=== PATIENT | female | born 1945 | race Caucasian/White ===

== ENCOUNTER 2018-03-06 18:36 | Inpatient (IN) | payer MEDICARE ==
[2018-03-06 19:02] LABS: Hemoglobin 17.7 g/dL (12.0-16.0); Mean Corpuscular HGB CONC 32.9 g/dL (32.0-36.0); Mean Corpuscular Hemoglobin 31.7 pg (27.0-31.0); Mean Corpuscular Volume 96.4 fl (81.0-99.0); Platelet Count 456 thou/uL (130-400); RBC Distribution Width 13.1 % (11.5-14.5); Red Blood Cell (RBC) Count 5.58 mill/uL (4.20-5.40); White Blood Cell (WBC) Count 15.6 thou/uL (4.8-10.8)
[2018-03-06 19:03] LABS: pH, Arterial 7.26 (7.35-7.45)
[2018-03-06 19:04] LABS: Actual Bicarbonate (HCO3a) 28.1 mEq/L (22-26); Base Excess (BEa) -0.8 mEq/L (0 (+/-) 2.5); CO2 Tension 63.9 mmHg (35.0-45.0); Hematocrit-ABG 59.8 % (36.0-47.0); Hemoglobin (Hb) 17.1 g/dL (12.0-16.0); O2 Tension (PaO2) 83.8 mmHg (80.0-100.0)
[2018-03-06 19:05] LABS: ALV-art Gradient 121.525 (0-20); Analyzer IN Cardio ER; Calcium, Ionized 1.2 mmol/L (1.12-1.30); Puncture Site RRA
[2018-03-06] MEDS ORDERED: Magnesium Sulfate 2 GM/100 ML BAG ONE (19:11)
[2018-03-06] MEDS ORDERED: Azithromycin 500 MG VIAL ONE (19:21)
[2018-03-06 19:22] LABS: CKMB 1.9 ng/mL (0-6.6); Troponin I Less than 0.010 ng/mL (< 0.028)
[2018-03-06 19:24] LABS: Band 9 % (5-11); Eosinophils 1 % (0-10); Lymphocytes 10 % (21-51); MDiff Complete? YES; Monocytes 13 % (0-10); Neutrophil 66 % (42-75); PLT Morphology Comment Appears Increased; Polychromasia SLIGHT = 2-3 cells (100X) (0-2/hpf); Reactive Lymphocytes 1 % (0-10)
[2018-03-06 19:28] LABS: Vacuoles SLIGHT
[2018-03-06 19:44] LABS: ALT (SGPT) 12 U/L (8-55); AST (SGOT) 20 U/L (5-34); Albumin 3.7 g/dL (3.4-4.8); Alkaline Phosphatase 156 U/L (40-150); Anion Gap 18 mmol/L (10-20); BUN (Urea Nitrogen) 10 mg/dL (9.8-20.1); Bilirubin, Total 0.8 mg/dL (0.2-1.2); Calc. Creatinine Clearance 0 mL/min (70-130); Calcium 9.3 mg/dL (7.8-10.44); Carbon Dioxide 25 mmol/L (23-31); Chloride 94 mmol/L (98-107); Estimated GFR-MDRD 87; Glucose 154 mg/dL (83-110); Potassium 3.9 mmol/L (3.5-5.1); Protein, Total 7.7 g/dL (6.0-8.3); Sodium 133 mmol/L (136-145)
--- NOTE | 2018-03-06 19:49 | RAD ---
PORTABLE AP CHEST X-RAY 03/06/18 HISTORY: Cough and worsening shortness of breath. COMPARISON: 02/02/17. FINDINGS: The cardiac silhouette and pulmonary vasculature are within normal limits. The lungs are hyperexpande d. There is an irregular nodular parenchymal density seen at the left lung base not seen on prior bijan dy. This could represent focal area of pneumonitis, but followup is recommended to ensure resolution. There is also suggestion of mild increased interstitial densities in the retrocardiac region of the left lung base not see non prior study. This could present focal area of pneumonitis, but followup is recommended to ensure resolution. There is also suggestion of mild increased interstitial densities in the retrocardiac region of the left lung base. Mild chronic lung changes are present. There is ava nting of the right lateral costophrenic angles some of which is related to mild flattening of the hem idiaphragms and probably pleural thickening, but tiny right pleural effusion is a possibility. There is suggestion of postsurgical changes in the right breast with surgical clips again seen in the right axillary region. No other interval change. IMPRESSION: 1. Interstitial and nodular parenchymal densities at the left lung base. These findings may be r elated to pneumonitis. Followup evaluation is recommended given the irregular nodular parenchymal den sity at the left lung base. 2. Chronic lung changes. POS: [facility]
--- NOTE | 2018-03-06 21:44 | HP ---
DATE OF ADMISSION: 03/06/2018 PRIMARY CARE PHYSICIAN: Dr. Leo Porter in [place], [place]. CHIEF COMPLAINT: Shortness of breath. HISTORY OF PRESENT ILLNESS: This is a 72-year-old female who presents to [facility] complaining of increasing shortness of breath over the last 5-7 days prior to admiss ion. Patient took home remedies to include albuterol inhaler as well as Mucinex DM without relief of her symptoms. Patient smokes up to 1-1/2 to 2 packs of cigarettes daily, but denies any home oxygen use or previous admissions for respiratory failure. Patient states the symptoms continued to progre ss with worsening shortness of breath, calling EMS personnel. EMS arrived, noting patient's O2 satur ations in the 50% range and placed on oxygen supplementation with improvement in O2 saturations in th e 80% range. Patient also received DuoNeb therapy x2 and 125 mg of Solu-Medrol intravenously. In th e emergency room, patient underwent general evaluation including chest imaging showing chronic change s with hyperinflation consistent with chronic obstructive pulmonary disease. Patient underwent ABG e valuation showing pH of 7.26 and pCO2 of 64. Patient was placed on BiPAP noninvasive mechanical vent ilation. Patient also received intravenous fluids x1 liter of normal saline as well as azithromycin 500 mg IV x1 dose and Levaquin 750 mg IV x1 dose. Patient also received magnesium sulfate and DuoNeb therapy. Patient also received Rocephin 2 grams IV x1 dose. Patient was referred to the [facility] for further evaluation and admission. PAST MEDICAL HISTORY: 1. Tobacco abuse. 2. Chronic obstructive pulmonary disease. 3. History of right-sided breast cancer. 4. Depression. PAST SURGICAL HISTORY: Reviewed and negative. CURRENT MEDICATIONS: 1. Albuterol metered-dose inhaler. 2. Mucinex DM. We will need to confirm accurate home medication list with family. ALLERGIES: No known drug allergies. FAMILY HISTORY: Positive for hypertension. SOCIAL HISTORY: Patient is , resides in the [place], [place] area. Smokes up to 2 packs of ci garettes daily. No alcohol or illicit drug use. Functional of all activities of daily living. REVIEW OF SYSTEMS: The following complete review of systems was otherwise negative, except as stated per HPI: Constitutional: Weight loss or gain, ability to conduct usual activities. Skin: Rash, i tching. Eyes: Double vision, pain. ENT/Mouth: Nose bleeding, neck stiffness, pain, tenderness. C ardiovascular: Palpitations, dyspnea on exertion, orthopnea. Respiratory: Shortness of breath, whe ezing, cough, hemoptysis, fever, or night sweats. Gastrointestinal: Poor appetite, abdominal pain, heartburn, nausea, vomiting, constipation, or diarrhea. Genitourinary: Urgency, frequency, dysuria, nocturia. Musculoskeletal: Pain, swelling. Neurologic/Psychiatric: Anxiety, depression. Allergy /Immunologic: Skin rash, bleeding tendency. PHYSICAL EXAMINATION: VITAL SIGNS: On admission blood pressure 155/94, pulse 126, respiratory rate 26, temperature 99.0 de grees Fahrenheit, O2 saturation 97% on BiPAP by noninvasive mechanical ventilation. GENERAL APPEARANCE: This is a 72-year-old female on current BiPAP noninvasive mechanical v entilation, alert, responds to questions by nodding her head, in mild respiratory distress. HEENT: Pupils are equal, round, and reactive to light and accommodation. Extraocular muscles are in tact. No scleral icterus, no conjunctival injection. Nares patent. OP is clear. Teeth in fair rep air. No oral lesions noted. NECK: Supple, no cervical adenopathy, no thyromegaly, no carotid bruits, no JVD appreciated. Cervic al spine with full active and passive range of motion. No meningeal signs appreciated. CHEST: Diminished breath sounds in all lung mott. Expiratory wheezes noted. No crackles apprecia meg. CARDIOVASCULAR: S1, S2 with tachycardia diminished and distant heart sounds. ABDOMEN: Flat, soft, nontender, nondistended. Bowel sounds are positive in all four quadrants. The re is no hepatosplenomegaly, no abdominal bruits, no rebound or guarding appreciated. EXTREMITIES: Warm and dry with fair turgor. No clubbing, cyanosis, or asymmetric edema appreciated. Pulses are palpable distally at the dorsalis pedis, posterior tibial, and popliteal arteries bilate rally. Capillary refill less than 2 seconds. NEUROLOGIC: Cranial nerves II-XII are grossly intact. No focal or lateralizing signs appreciated. PERTINENT LABORATORY DATA AND X-RAY FINDINGS: Sodium 133, potassium 3.9, chloride 94, CO2 of 25, BUN 10, creatinine 0.67, estimated GFR of 87, glucose 154. Lactic acid level 2.0, calcium 9.3. Total b ilirubin 0.8, AST 20, ALT of 12, alkaline phosphatase 156, troponin I negative x1. BNP 105, albumin 3.7. CBC showed a white blood cell count of 15.6, hemoglobin 17.7, hematocrit 54, platelet count 456 with normal differential. ABG dated 03/06/2018 at 1852 showed a pH of 7.26, pCO2 of 64, pO2 of 84, bicarbonate 28.1, O2 saturation 96% on 40% FIO2 by BiPAP noninvasive mechanical ventilation. Portabl e chest x-ray dated 03/06/2018 showed interstitial and chronic changes in bilateral lung mott with increased density of the left lung base. EKG dated by my interpretation shows sinus tachycardia with heart rates in the 110s. Attenuated R waves noted in the precordial leads. Left axis deviation not ed. No acute ST-T wave changes appreciated. ASSESSMENT AND PLAN: 1. Acute hypercapnic respiratory failure. Patient will be continued on BiPAP noninvasive mechanical ventilation. We will continue treatment as outlined. 2. Titrate BiPAP noninvasive mechanical ventilation as clinically indicated. Consult Pulmonology Se rvice in the a.m. for evaluation and co-management. 3. Acute chronic obstructive pulmonary disease exacerbation. We will continue BiPAP noninvasive mec hanical ventilation as outlined in #1. Solu-Medrol 40 mg IV q.6 hours. Continue Levaquin 750 mg IV q .24 hours. DuoNeb q.4 hours. Dulera 2 puffs inhaled b.i.d. 4. Dehydration. We will continue intravenous normal saline at 75 mL per hour. Encourage increased free water intake when BiPAP noninvasive mechanical ventilation discontinued. 5. Tobacco abuse. We will offer smoking cessation resources prior to discharge. 6. Hyponatremia. We will continue intravenous normal saline at 75 mL per hour. Repeat sodium level in the a.m. 7. Prophylaxis. Sequential compression devices while in bed. Pepcid 20 mg p.o. b.i.d. 8. Code status is FULL. Surrogate medical decision maker is patient's spouse. Total critical care time is 45 minutes.
[2018-03-06] MEDS ORDERED: Ondansetron ODT 4 MG TAB SL PRN (21:57)
[2018-03-06] MEDS ORDERED: Sodium Chloride 0.9% 1,000 ML IV SCH (21:57)
[2018-03-06] MEDS ORDERED: Acetaminophen 325 MG TAB PO PRN (21:57)
[2018-03-06] MEDS ORDERED: Ondansetron HCl/PF 4 MG/2 ML Vial IVP PRN ×2 (21:57→22:14)
[2018-03-06] MEDS ORDERED: Ondansetron ODT 4 MG TAB PO PRN (22:14)
[2018-03-06] MEDS ORDERED: Benzonatate 100 MG CAP PO PRN (22:14)
[2018-03-06] MEDS ORDERED: hydrALAZINE 20 MG/ML VIAL SLOW IVP PRN (22:14)
[2018-03-06] MEDS ORDERED: Acetaminophen 500 MG TAB PO PRN (22:14)
[2018-03-06] MEDS ORDERED: Diabetic Tussin 200 MG/10 ML UDCUP PO PRN (22:14)
[2018-03-06] MEDS ORDERED: cloNIDine 0.1 MG TAB PO PRN (22:14)
[2018-03-06] MEDS ORDERED: Famotidine 20 MG TAB PO SCH (22:45)
[2018-03-06 23:15] VITALS: BMI 16.8
[2018-03-07] MEDS: Sodium Chloride 0.9% 1,000 ML IV SCH ×3 (00:40→23:34)
[2018-03-07 05:30] LABS: ALT (SGPT) 10 U/L (8-55); AST (SGOT) 12 U/L (5-34); Albumin 3.2 g/dL (3.4-4.8); Alkaline Phosphatase 120 U/L (40-150); Anion Gap 12 mmol/L (10-20); BUN (Urea Nitrogen) 8 mg/dL (9.8-20.1); Bilirubin, Total 0.4 mg/dL (0.2-1.2); Calc. Creatinine Clearance 67 mL/min (70-130); Calcium 8.7 mg/dL (7.8-10.44); Carbon Dioxide 29 mmol/L (23-31); Chloride 100 mmol/L (98-107); Estimated GFR-MDRD Greater than 90; Globulin 3.3 g/dL (2.4-3.5); Glucose 150 mg/dL (83-110); Potassium 4.5 mmol/L (3.5-5.1); Protein, Total 6.5 g/dL (6.0-8.3); Sodium 136 mmol/L (136-145)
[2018-03-07 05:38] LABS: Band 19 % (5-11); Hemoglobin 15.6 g/dL (12.0-16.0); Lymphocytes 2 % (21-51); MDiff Complete? YES; Mean Corpuscular HGB CONC 31.9 g/dL (32.0-36.0); Mean Corpuscular Hemoglobin 30.9 pg (27.0-31.0); Mean Corpuscular Volume 96.7 fl (81.0-99.0); Mean Platelet Volume 6.1 fL (7.4-10.4); Monocytes 2 % (0-10); Neutrophil 77 % (42-75); PLT Morphology Comment Appears Increased; Platelet Count 415 thou/uL (130-400); RBC Distribution Width 12.9 % (11.5-14.5); RBC Morphology Normal; Red Blood Cell (RBC) Count 5.04 mill/uL (4.20-5.40); White Blood Cell (WBC) Count 13.8 thou/uL (4.8-10.8)
[2018-03-07] MEDS: Mometasone/Formoterol 120 PUFF INHALER INH SCH ×2 (07:16→18:43)
[2018-03-07] MEDS: Famotidine 20 MG TAB PO SCH ×2 (11:08→21:18)
--- NOTE | 2018-03-07 12:27 | CT ---
CT CHEST WITH CONTRAST: History: Abnormal radiograph. Comparison: 03-06-17 FINDINGS: There is thickened interstitium throughout the lungs without apical basilar gradient. There are multi ple areas of normal bronchiectasis. There is interstitial thickening in the left lung base, greater t brown the right lung base. Peripheral small vertebral nodules are present. Likely component of scarring in the left lung base peripherally. Scattered atelectasis. There is abnormal enhancement and fibrotic appearance of the liver. Small AP window lymph nodes. No significant prevascular hilar adenopathy. No significant pericardial effusion. There is no definite intraparenchymal solid mass. Mild emphysema. IMPRESSION: 1. No evidence of suspicious lung mass. 2. Interstitial thickening throughout the lungs suggesting a component of pulmonary edema. 3. Scattered small centrilobularal pulmonary nodules can seen with bronchiolitis. 4. Likely a component of scarring with surrounding atelectasis in the lung bases. 5. Nonspecific small, likely reactive mediastinal lymph nodes. 6. Heterogeneous appearance of the liver may be sequellae of cirrhosis or hepatic fibrosis. POS: [facility]
--- NOTE | 2018-03-07 14:10 | CON ---
DATE OF CONSULTATION: 03/07/2018 REASON FOR CONSULTATION: COPD exacerbation. 70 minutes time spent on this consult, of that time greater than 50% was spent with the patient and/or on the patient's unit. HISTORY OF PRESENT ILLNESS: This is a 72-year-old female from [place], who was brought in to the hospital with several days of increasing shortness of breath and sputum production. She was briefly placed on BiPAP because of some hypercapnia. At the time of admission, she has been taken off the BiPAP this morning and she wants to go home. She is 1.5-2 pack per day smoker for most of her life. She has been diagnosed with COPD and is being followed by Dr. German flores in [place]. PAST MEDICAL HISTORY: 1. COPD. 2. Right-sided breast cancer, treated with surgery and radiation. 3. Depression. PAST SURGICAL HISTORY: Breast surgery. MEDICATIONS PRIOR TO ADMISSION: Albuterol, Spiriva HandiHaler, Mucinex. ALLERGIES: None. SOCIAL HISTORY: Smoking as outlined above. Does not consume alcohol. Lives at home with her . FAMILY MEDICAL HISTORY: Remarkable for hypertension. REVIEW OF SYSTEMS: Remarkable for profound weight loss over the last 3 months. Otherwise, 12 point review of systems negative. PHYSICAL EXAMINATION: VITAL SIGNS: Temperature 97.5, pulse 80, respirations 20, O2 sat 95%, blood pressure 144/81, height 5 feet 9, weight 114 pounds, BMI 16.9. GENERAL: She looks older than her stated age of 72. HEENT: Pupils react. Sclerae icteric. Oropharynx clear. NECK: Without adenopathy, JVD, or bruits. LUNGS: Diffuse bilateral soft wheezing. CARDIAC: S1, S2 regular without murmur. ABDOMEN: Soft, nontender, nondistended. EXTREMITIES: No clubbing, cyanosis, or edema. NEUROLOGIC: Grossly intact throughout. Chest x-ray shows what appears to be a nodule in the left lower lobe, this could be a nipple shadow. She has hyperinflation and has chronic interstitial changes. LABORATORY DATA: White blood cell count 13.8, hematocrit 48.8, platelet count 415. A pH 7.26, pCO2 63, pO2 of 83. Sodium 136, potassium 4.5, chloride 100, CO2 29, BUN 8, creatinine 0.6, glucose 150. BNP 104. ASSESSMENT: 1. Acute hypercapnic respiratory failure. 2. Chronic obstructive pulmonary disease exacerbation. 3. Question of left lower lobe lung mass. 4. Tobacco abuse. PLAN: 1. CT of the chest with contrast. 2. Can transfer out to the medical floor. 3. Continue steroids, nebulization treatments, oxygen and antibiotics. If she does well, then she could probably go home tomorrow. CHERYLE
[2018-03-07] MEDS ORDERED: ISOVUE-370 76%-LOCM 1 ML ONE (14:22)
--- NOTE | 2018-03-07 15:04 | PDOC.PN ---
- Subjective Encounter Start Date: 03/07/18 Encounter Start Time: 11:00 Subjective: pt up in bed with family at bedside - Objective Resuscitation Status: Resuscitation Status FULL:Full Resuscitation Vital Signs & Weight: Vital Signs (12 hours) Temp Pulse Resp BP Pulse Ox 03/07/18 11:03 98.0 F 86 22 H 147/67 H 97 03/07/18 08:00 97.5 F L 80 18 95 03/07/18 07:45 80 23 H 95 03/07/18 07:22 97.5 F L 80 18 144/81 H 95 03/07/18 03:56 97.2 F L 79 17 115/66 98 Weight Weight 114 lb 3 oz I&O: 03/06/18 03/07/18 03/08/18 06:59 06:59 06:59 Intake Total 457 Output Total 850 Balance -393 Result Diagrams: 03/07/18 04:38 03/07/18 04:38 Phys Exam - Physical Examination MM is dry Neck: no nodes, no JVD, supple, full ROM Respiratory: no wheezing, no rales, no rhonchi, wheezing present, clear to auscultation bilateral Cardiovascular: RRR, no significant murmur, no rub, gallop, irregular Gastrointestinal: soft, non-tender Musculoskeletal: no edema, pulses present, edema present Neurological: non-focal, normal sensation, moves all 4 limbs Dx/Plan - Plan 1) acute hypercapnic resp failure 2) Acute chronic obs pulmonary disease exab 3) dehydration 4) tobacco abuse 5) hyponatremia 6) leukocytosis plan: pt up in bed on 3L of oxygen, pt on steroids iv and abx. ct chest no pneumonia noted. will continue iv abx * . Review of Systems - Review of Systems Eyes: negative: Pain, Vision Change, Conjunctivae Inflammation, Eyelid Inflammation, Redness, Other ENT: negative: Ear Pain, Ear Discharge, Nose Pain, Nose Discharge, Nose Congestion, Mouth Pain, Mouth Swelling, Throat Pain, Throat Swelling, Other Respiratory: negative: Cough, Dry, Shortness of Breath, Hemoptysis, SOB with Excertion, Pleuritic Pain, Sputum, Wheezing Cardiovascular: negative: chest pain, palpitations, orthopnea, paroxysmal nocturnal dyspnea, edema, light headedness, other Gastrointestinal: negative: Nausea, Vomiting, Abdominal Pain, Diarrhea, Constipation, Melena, Hematochezia, Other Genitourinary: negative: Dysuria, Frequency, Incontinence, Hematuria, Retention , Other Musculoskeletal: negative: Neck Pain, Shoulder Pain, Arm Pain, Back Pain, Hand Pain, Leg Pain, Foot Pain, Other - Medications/Allergies Allergies/Adverse Reactions: Allergies Allergy/AdvReac Type Severity Reaction Status Date / Time No Known Allergies Allergy Verified 03/06/18 23:00 Medications: Current Medications Acetaminophen (Tylenol) 1,000 mg PO Q6H PRN PRN Reason: Headache/Fever or Mild Pain Albuterol/Ipratropium (Duoneb) 3 ml NEB [id number] PRN PRN Reason: SOB &/or Wheezing Benzonatate (Tessalon) 200 mg PO Q6H PRN PRN Reason: Cough Clonidine (Catapres) 0.1 mg PO Q4H PRN PRN Reason: Systolic BP > 180 Famotidine (Pepcid) 20 mg PO BID [facility] Last Admin: 03/07/18 11:08 Dose: 20 mg Guaifenesin (Robitussin Sf) 200 mg PO Q4H PRN PRN Reason: Cough Hydralazine HCl (Apresoline) 10 mg SLOW IVP Q4H PRN PRN Reason: Systolic BP > 180 Levofloxacin 750 mg/ Device 150 mls @ 100 mls/hr IVPB Q24HR [facility] Sodium Chloride (Normal Saline 0.9%) 1,000 mls @ 75 mls/hr IV .[id number] [facility] Last Admin: 03/07/18 11:09 Dose: 1,000 mls Methylprednisolone Sodium Succinate (Solu-Medrol) 20 mg IVP Q6HR [facility] Last Admin: 03/07/18 11:15 Dose: 20 mg Mometasone Furoate/Formoterol Fumar (Dulera 200 Mcg/5 Mcg Inhaler) 2 puff INH BID-RT [facility] Ondansetron HCl (Zofran Odt) 4 mg PO Q6H PRN PRN Reason: Nausea/Vomiting Ondansetron HCl (Zofran) 4 mg IVP Q6H PRN PRN Reason: Nausea/Vomiting Sodium Chloride (Flush - Normal Saline) 10 ml IVF Q12HR [facility] Last Admin: 03/07/18 11:08 Dose: 10 ml Sodium Chloride (Flush - Normal Saline) 10 ml IVF PRN PRN PRN Reason: Saline Flush
[2018-03-08 05:51] LABS: Bilirubin Negative (Negative); Blood, Urine Negative (Negative); Clarity CLEAR (Clear); Glucose, Urine (Dipstick) Negative (Negative); Leukocyte Negative (Negative); Nitrite Negative (Negative); Protein, Urine (Dipstick) Negative (Neg-Trace); pH, Urine 6.5 (5.0-9.0)
[2018-03-08] MEDS: Mometasone/Formoterol 120 PUFF INHALER INH SCH ×2 (06:35→21:44)
[2018-03-08] MEDS: Famotidine 20 MG TAB PO SCH ×2 (08:24→20:39)
--- NOTE | 2018-03-08 10:44 | PRG ---
DATE OF SERVICE: 03/08/2018 SUBJECTIVE: Patient is anxious to go home. OBJECTIVE: VITAL SIGNS: Temperature 97.7, pulse 69, respirations 15, O2 sat 92% on 3 liters, blood pressure 180 /91. HEENT: Unremarkable. NECK: Supple. No JVD. CHEST: Clear without wheezing or rhonchi. CARDIAC: S1, S2 regular. ABDOMEN: Soft. EXTREMITIES: No edema. IMAGING: CT scan showed no evidence of lung mass. ASSESSMENT: Chronic obstructive pulmonary disease exacerbation. PLAN: It is okay for me if she goes home. She needs to be on steroid taper over about 2 weeks and f inish about 7 days of antibiotics. I would send her home with a nebulizer with treatments up to 4 ti mes a day as needed. She can go back on Symbicort or Dulera and takes Spiriva. She has been told no t to smoke. She may need O2 at home temporarily. It is okay if she follows up with me in 3-4 weeks and we will do PFTs at that time and she is more stable. She can also choose to follow up with [facility].
--- NOTE | 2018-03-08 13:40 | PDOC.PN ---
- Subjective Encounter Start Date: 03/08/18 Encounter Start Time: 10:35 Subjective: pt up in bed eating, states she feels better - Objective Resuscitation Status: Resuscitation Status FULL:Full Resuscitation Vital Signs & Weight: Vital Signs (12 hours) Temp Pulse Resp BP Pulse Ox 03/08/18 11:23 98.2 F 62 16 176/74 H 98 03/08/18 08:24 97.7 F 69 15 92 L 03/08/18 07:18 97.7 F 69 15 180/91 H 92 L 03/08/18 06:35 74 18 94 L 03/08/18 03:56 97.9 F 72 16 178/84 H 94 L Weight Admit Weight 114 lb Weight 114 lb I&O: 03/07/18 03/08/18 03/09/18 06:59 06:59 06:59 Intake Total 457 1860 Output Total 850 Balance -393 1860 Result Diagrams: 03/07/18 04:38 03/07/18 04:38 Phys Exam - Physical Examination HEENT: PERRLA, moist MMs, sclera anicteric, TM's clear, oral pharynx no lesions , 2+ tonsils Neck: no nodes, no JVD, supple, full ROM Respiratory: wheezing present diminished breath sounds Cardiovascular: RRR, no significant murmur, no rub, gallop, irregular Gastrointestinal: soft, non-tender, no distention, positive bowel sounds Dx/Plan - Plan * 1) acute hypercapnic resp failure 2) Acute chronic obs pulmonary disease exab 3) dehydration 4) tobacco abuse 5) hyponatremia 6) leukocytosis plan: pt transferred to floor feels well today. will change iv steroids to oral. She still has some wheezing. Did educated the importance of smoking cessation. pt states she cannot stop now. will watch pt for one more day and then discharge in am. Review of Systems - Review of Systems Eyes: negative: Pain, Vision Change, Conjunctivae Inflammation, Eyelid Inflammation, Redness, Other ENT: negative: Ear Pain, Ear Discharge, Nose Pain, Nose Discharge, Nose Congestion, Mouth Pain, Mouth Swelling, Throat Pain, Throat Swelling, Other Respiratory: Shortness of Breath Cardiovascular: negative: chest pain, palpitations, orthopnea, paroxysmal nocturnal dyspnea, edema, light headedness, other Gastrointestinal: negative: Nausea, Vomiting, Abdominal Pain, Diarrhea, Constipation, Melena, Hematochezia, Other Genitourinary: negative: Dysuria, Frequency, Incontinence, Hematuria, Retention , Other Musculoskeletal: negative: Neck Pain, Shoulder Pain, Arm Pain, Back Pain, Hand Pain, Leg Pain, Foot Pain, Other - Medications/Allergies Allergies/Adverse Reactions: Allergies Allergy/AdvReac Type Severity Reaction Status Date / Time No Known Allergies Allergy Verified 03/06/18 23:00 Medications: Current Medications Acetaminophen (Tylenol) 1,000 mg PO Q6H PRN PRN Reason: Headache/Fever or Mild Pain Albuterol/Ipratropium (Duoneb) 3 ml NEB [id number] PRN PRN Reason: SOB &/or Wheezing Benzonatate (Tessalon) 200 mg PO Q6H PRN PRN Reason: Cough Clonidine (Catapres) 0.1 mg PO Q4H PRN PRN Reason: Systolic BP > 180 Famotidine (Pepcid) 20 mg PO BID COUNTS INCLUDE 234 BEDS AT [facility] Last Admin: 03/08/18 08:24 Dose: 20 mg Guaifenesin (Robitussin Sf) 200 mg PO Q4H PRN PRN Reason: Cough Hydralazine HCl (Apresoline) 10 mg SLOW IVP Q4H PRN PRN Reason: Systolic BP > 180 Levofloxacin 750 mg/ Device 150 mls @ 100 mls/hr IVPB Q24HR COUNTS INCLUDE 234 BEDS AT THE [facility] Last Admin: 03/07/18 21:17 Dose: 150 mls Sodium Chloride (Normal Saline 0.9%) 1,000 mls @ 75 mls/hr IV .[id number] COUNTS INCLUDE 234 BEDS AT THE [facility] Last Admin: 03/07/18 23:34 Dose: Not Given Mometasone Furoate/Formoterol Fumar (Dulera 200 Mcg/5 Mcg Inhaler) 2 puff INH BID-RT COUNTS INCLUDE 234 BEDS AT THE [facility] Last Admin: 03/08/18 06:35 Dose: 2 puff Ondansetron HCl (Zofran Odt) 4 mg PO Q6H PRN PRN Reason: Nausea/Vomiting Ondansetron HCl (Zofran) 4 mg IVP Q6H PRN PRN Reason: Nausea/Vomiting Prednisone (Prednisone) 40 mg PO BID COUNTS INCLUDE 234 BEDS AT THE [facility] Sodium Chloride (Flush - Normal Saline) 10 ml IVF Q12HR COUNTS INCLUDE 234 BEDS AT THE [facility] Last Admin: 03/08/18 11:59 Dose: 10 ml Sodium Chloride (Flush - Normal Saline) 10 ml IVF PRN PRN PRN Reason: Saline Flush
--- NOTE | 2018-03-08 14:56 | PQF ---
LUIS CHAVEZ LUIS [id number] [place] [id number] CLINICAL DOCUMENTATION IMPROVEMENT CLARIFICATION FORM: ICD-10 Updated PLEASE DO AN ADDENDUM TO THE PROGRESS NOTE WITH ANY DOCUMENTATION UPDATES OR ADDITIONS AND CARRY THROUGH TO DC SUMMARY. THANK YOU. Date: 03-08-18 ATTN: DR. BEATTY Please exercise your independent, professional judgment in responding to the clarification form. Clinical indicators are provided on the bottom of this form for your review Please check appropriate box(s): [ x ] Protein Calorie Malnutrition: [ ] Mild [x ] Moderate [ ] Severe [ ] Other Malnutrition (please specify) __ [ ] Underweight without malnutrition [ ] Cachexia [ ] Other diagnosis [ ] Unable to determine CLINICAL INDICATORS - SIGNS / SYMPTOMS / LABS BMI 16.8 MONICA CONSULT: PROFOUND WT LOSS OVER LAST 3 MONTHS NUTRITION ASSESSMENT: % WEIGHT CHANGE: -13.6% over the past 6-7 months observed clavicular and temporal muscle wasting RISK FACTORS H&P: COPD TREATMENT: NUTRITION ASSESSMENT: MALNUTRITION R/T COPD clavicular and temporal muscle wasting observed, 13.6% wt loss over the past 6- 7 months, <50% energy intake compared to estimated needs over the past >1 month 1) Recommend Regular/liberalized diet. 2) Recommend Ensure Enlive BID to promote weight gain. 3) Consider appetite stimulant. 4) Provide bowel regimen PRN. Moderate Malnutrition (in acute illness) Energy Intake: <75% of estimated energy requirement for > 7 days Weight Loss: 1-2%/1 week; 5%/ 1 month; 7.5%/3 months Other: mild body fat loss; mild muscle mass loss; mild fluid accumulation; Severe Malnutrition (in acute illness) Energy Intake: < 50% of estimated energy requirement for > 5 days Weight Loss: >1-2%/1 week; >5%/1 month; >7.5%/3 months Other: moderate body fat loss; moderate muscle mass loss; moderate- severe fluid accumulation; measurably reduced fishing reel assembler strength Moderate Malnutrition (in chronic illness) Energy Intake: <75% of estimated energy requirement for >1 month Weight Loss: 5%/1 month; 7.5%/3 months; 10%/6 months; 20%/1 year Other: mild body fat loss; mild muscle mass loss; mild fluid accumulation Severe Malnutrition (in chronic illness) Energy Intake: <75% of estimated energy requirement for >1 month Weight Loss: >5%/1 month; >7.5%/3 months; >10%/6 months; >20%/1 year Other: severe body fat loss; severe muscle mass loss; severe fluid accumulation; measurably reduced fishing reel assembler strength THANK YOU, CIERA (This form is maintained as a part of the permanent medical record) 2015 [employer]. All Rights Reserved Ciera Sexton RN, BS [email or web address]
[2018-03-08] MEDS: predniSONE 20 MG TAB PO SCH (17:43)
[2018-03-08] MEDS: Sodium Chloride 0.9% 1,000 ML IV SCH (17:49)
[2018-03-09] MEDS: Mometasone/Formoterol 120 PUFF INHALER INH SCH (06:46)
[2018-03-09] MEDS: predniSONE 20 MG TAB PO SCH (08:37)
[2018-03-09] MEDS: Sodium Chloride 0.9% 1,000 ML IV SCH (08:37)
[2018-03-09] MEDS: Famotidine 20 MG TAB PO SCH (08:37)
--- NOTE | 2018-03-09 09:25 | PRG ---
DATE OF SERVICE: 03/09/2018 She is doing well and has no acute complaints. She wants to go home. PHYSICAL EXAMINATION: VITAL SIGNS: Temperature 98.3, pulse 70, respirations 18, O2 sat 93%, blood pressure 167/86. HEENT: Unremarkable. NECK: No JVD. CHEST: Clear without wheezing. CARDIAC: S1 and S2 regular. ABDOMEN: Soft. EXTREMITIES: No edema. ASSESSMENT: 1. Chronic obstructive pulmonary disease exacerbation. 2. Hypoxemia. PLAN: Again, she is cleared to go home. She has been told to follow up in 2-3 weeks. Her home oxyg en has been ordered by the Hospitalist group.
--- NOTE | 2018-03-09 15:05 | DIS ---
DATE OF ADMISSION: 03/06/2018 DATE OF DISCHARGE: 03/09/2018 DISCHARGE DIAGNOSES: 1. Acute chronic obstructive pulmonary disease exacerbation. 2. Moderate malnutrition. 3. Smoking. 4. Hyponatremia. HOSPITAL COURSE: The patient is a very pleasant 72-year-old female, who currently continues to smoke , who presented to the hospital with complaints of shortness of breath. Patient initially was admitt ed to the step-down unit since she was on BiPAP. The patient underwent a CT chest, which indicated i nterstitial thickening throughout the lung suggesting component of pulmonary edema, scattered small c entrilobular pulmonary nodule. Heterogenous appearance of the liver could be possibly secondary to c irrhosis or hepatic fibrosis. The patient also was seen by Pulmonary. The patient was put on IV christopher roids, which was transitioned to p.o. steroids. The patient continued to improve throughout the hosp ital stay. She was discharged to home with a nebulizer machine since she does not have one. Also, s ome nebulizing solution, antibiotics, and steroid taper. The patient will follow up with Pulmonary a s outpatient. The patient was made aware of the CT findings. Patient was sent home with oxygen. She did require home oxygen. PHYSICAL EXAMINATION: GENERAL: She is awake, alert, oriented x3, does not appear in distress. The patient appears moderat kevin malnourished VITAL SIGNS: 97.7, 91, 18, 93%, 166/86. GENERAL: She is awake, alert, and oriented x3, does not appear in distress. CARDIOVASCULAR: S1 and S2 present. No murmurs, rubs, or gallops. LUNGS: Diminished breath sounds all over. No wheezing noted. ABDOMEN: Soft and nontender. Bowel sounds are present x2. MEDICATIONS: Are as the followin. She is on a steroid taper for about 2 weeks. 2. Pepcid 20 mg b.i.d. 3. DuoNeb q.4 hours p.r.n. 4. Levofloxacin 750 mg for 5 days. 5. Dulera 2 puffs inhalation twice a day. 6. Spiriva 18 mcg daily. 7. Albuterol p.r.n.
[2018-03-09 15:34] VITALS: BP 182/80; TEMP 97.6
== END 2018-03-09 16:30 | disposition home health service (06) | DRG 189 ==
LOC: ERS 18:36 → IMCU/EMU 19:44 → SURG A 03-07 17:53
PROVIDERS: ADMIT Family Medicine; ATTEND Family Medicine
PROC: 5A09357 Assistance with Respiratory Ventilation, Less than 24 Consecutive Hours, Continuous Positive Airway Pressure (ICD-10-PCS; principal; 2018-03-06)
DX: J96.02 Acute respiratory failure with hypercapnia (principal); E44.0 Moderate protein-calorie malnutrition; E86.0 Dehydration; J44.1 Chronic obstructive pulmonary disease with (acute) exacerbation; E87.1 Hypo-osmolality and hyponatremia; Z68.1 Body mass index [BMI] 19.9 or less, adult; F17.210 Nicotine dependence, cigarettes, uncomplicated; F32.9 Major depressive disorder, single episode, unspecified
CPT/HCPCS: 36415; 71045; 71260; 80053; 81003; 82553; 82805; 83605; 83880; 84484; 85007; 85025; 85027; 87040; 93005; 94660; 94760; 96365; 96366; 96367; 96375; 99406; A4216; J0360; J0456; J0696; J1956; J2920; J3475; J7506; J7620

== ENCOUNTER 2023-06-10 08:01 | Outpatient (CLI) | payer MEDICARE | END 2023-06-10 08:02 | disposition home or self-care (01) | LOC: CT 08:01 | DX: C34.92 Malignant neoplasm of unspecified part of left bronchus or lung (principal); R91.8 Other nonspecific abnormal finding of lung field; J84.10 Pulmonary fibrosis, unspecified; I25.10 Atherosclerotic heart disease of native coronary artery without angina pectoris | CPT/HCPCS: 71250; 78815; A9552 ==

== ENCOUNTER 2023-06-10 09:00 | Outpatient (CLI) | payer MEDICARE | END 2023-06-10 09:01 | disposition home or self-care (01) | LOC: CAC 09:00 | DX: C34.32 Malignant neoplasm of lower lobe, left bronchus or lung (principal) | CPT/HCPCS: 71250; 78815; A9552 ==

== ENCOUNTER 2023-08-06 08:46 | Outpatient (CLI) | payer MEDICARE | END 2023-08-06 08:47 | disposition home or self-care (01) | LOC: CT 08:46 | DX: Z51.0 Encounter for antineoplastic radiation therapy (principal); C34.32 Malignant neoplasm of lower lobe, left bronchus or lung; K76.89 Other specified diseases of liver; J44.9 Chronic obstructive pulmonary disease, unspecified; R91.1 Solitary pulmonary nodule; J92.9 Pleural plaque without asbestos; I25.10 Atherosclerotic heart disease of native coronary artery without angina pectoris; Z87.891 Personal history of nicotine dependence; Z85.3 Personal history of malignant neoplasm of breast; Z99.81 Dependence on supplemental oxygen | CPT/HCPCS: 71270; 82565 ==

== ENCOUNTER 2024-12-06 11:55 | Inpatient (IN) | payer MEDICARE ==
[2024-12-06 12:39] VITALS: BMI 16.5
[2024-12-06] MEDS ORDERED: Albuterol 2.5 MG (3 mL) NEB NEB PRN (12:51)
[2024-12-06] MEDS: cefTRIAXone\\ROCEPHIN 1 GM in Sodium Chloride 0.9% 100 ML IVPB SCH (13:40)
[2024-12-06] MEDS: Azithromycin 500 MG in Sodium Chloride 0.9% 250 ML 250 ML IVPB SCH (14:30)
[2024-12-06] MEDS: Ipratropium/Albuterol 3 ML NEB NEB SCH (14:47)
[2024-12-06] MEDS: Acetaminophen 325 MG TAB PO PRN (15:51)
[2024-12-06 16:20] VITALS: BMI 16.5
[2024-12-06] MEDS: methylPREDNISolone Sod Succ 40 MG VIAL IVP SCH (18:10)
[2024-12-06] MEDS: Mometasone 100 MCG/PUFF (1 INHALER) INH SCH (18:17)
[2024-12-06] MEDS: Senokot S 8.6-50 MG TAB PO PRN (20:37)
[2024-12-06] MEDS: Escitalopram Oxalate 10 mg Tablet PO SCH (20:37)
[2024-12-07 05:27] LABS: #Basophils Less than 0.03 10x3/uL (0.0-0.2); #Eosinophils Less than 0.03 10x3/uL (0.0-0.7); %Basophils 0.1 % (0.0-1.0); %Lymphocytes 1.8 % (21.0-51.0); %Monocytes 6.3 % (0.0-10.0); %Neutrophils 91.2 % (42.0-75.0); Hematocrit 31.3 % (36.0-47.0); Hemoglobin 9.2 g/dL (12.0-16.0); Mean Corpuscular HGB CONC 29.4 g/dL (32.0-36.0); Mean Corpuscular Hemoglobin 25.1 pg (27.0-31.0); Mean Corpuscular Volume 85.3 fL (78.0-98.0); Mean Platelet Volume 8.6 fL (7.4-10.4); Platelet Count 403 10x3/uL (130-400); RBC Distribution Width 23.2 % (11.5-14.5); Red Blood Cell (RBC) Count 3.67 mill/uL (4.20-5.40)
[2024-12-07 05:46] LABS: Anion Gap 10 mmol/L (10-20); BUN (Urea Nitrogen) 11 mg/dL (9.8-20.1); Calc. Creatinine Clearance 79 mL/min (70-130); Calcium 8.5 mg/dL (7.8-10.44); Carbon Dioxide 36 mmol/L (23-31); Chloride 98 mmol/L (98-107); Estimated GFR 97; Glucose 135 mg/dL (83-110); Potassium 4.3 mmol/L (3.5-5.1); Sodium 140 mmol/L (136-145)
[2024-12-07] MEDS: Ondansetron ODT 4 MG TAB PO PRN (08:19)
[2024-12-07] MEDS ORDERED: Ipratropium/Albuterol 3 ML NEB NEB PRN (08:39)
[2024-12-07] MEDS: Enoxaparin 40 MG (0.4 mL) SYRINGE SC SCH (08:48)
[2024-12-07] MEDS: Ferrous Sulfate 325 MG TAB PO SCH (08:48)
[2024-12-07] MEDS: Losartan 25 MG TAB PO SCH (08:49)
[2024-12-07] MEDS: Aspirin Chewable 81 MG TAB PO SCH (08:49)
[2024-12-07] MEDS: Polyethylene Glycol 3350 17 GM Packet PO SCH (08:49)
[2024-12-07] MEDS: FLU (Fluad Triv) TS24-25 (65UP)/MF59C/PF 45 MCG/0.5 ML Syringe IM ONE (10:16)
[2024-12-07] MEDS: Famotidine 20 MG TAB PO SCH ×2 (13:11→21:38)
[2024-12-07] MEDS: Guaifenesin DM 100-10/5 ML UDCUP PO PRN (21:38)
[2024-12-08 05:30] LABS: #Basophils Less than 0.03 10x3/uL (0.0-0.2); #Eosinophils Less than 0.03 10x3/uL (0.0-0.7); %Basophils 0.1 % (0.0-1.0); %Lymphocytes 2.3 % (21.0-51.0); %Monocytes 7.4 % (0.0-10.0); %Neutrophils 89.5 % (42.0-75.0); Hematocrit 32.6 % (36.0-47.0); Hemoglobin 9.5 g/dL (12.0-16.0); Mean Corpuscular HGB CONC 29.1 g/dL (32.0-36.0); Mean Corpuscular Hemoglobin 25.1 pg (27.0-31.0); Mean Platelet Volume 8.5 fL (7.4-10.4); Platelet Count 388 10x3/uL (130-400); RBC Distribution Width 23.2 % (11.5-14.5); Red Blood Cell (RBC) Count 3.79 mill/uL (4.20-5.40)
[2024-12-08 05:48] LABS: Anion Gap 10 mmol/L (10-20); BUN (Urea Nitrogen) 13 mg/dL (9.8-20.1); Calc. Creatinine Clearance 69 mL/min (70-130); Calcium 8.6 mg/dL (7.8-10.44); Carbon Dioxide 38 mmol/L (23-31); Chloride 96 mmol/L (98-107); Estimated GFR 94; Glucose 142 mg/dL (83-110); Potassium 4.4 mmol/L (3.5-5.1); Sodium 140 mmol/L (136-145)
[2024-12-08] MEDS: Calcium Carbonate 500 MG ChewTAB PO PRN (14:35)
[2024-12-08] MEDS: Simethicone Chewable 80 MG TAB PO PRN (15:15)
[2024-12-09] MEDS: Bisacodyl 5 MG TAB PO PRN (10:55)
[2024-12-09] MEDS: Ipratropium/Albuterol 3 ML NEB NEB SCH (11:57)
[2024-12-09] MEDS: Senokot 8.6 MG TAB PO SCH (12:14)
[2024-12-09] MEDS: guaiFENesin ER 600 MG TAB PO SCH ×2 (12:14→20:48)
[2024-12-09] MEDS: methylPREDNISolone Sod Succ 40 MG VIAL IVP SCH (14:00)
[2024-12-09] MEDS: Mometasone 100 MCG/Formoterol 5 MCG 120 PUFF INHALER INH SCH (19:25)
[2024-12-11] MEDS: Metoclopramide HCl 10 MG TAB PO SCH (12:28)
[2024-12-12 09:04] VITALS: BP 128/65; TEMP 97.8
== END 2024-12-12 10:53 | disposition home or self-care (01) | DRG 191 ==
LOC: UNDOADMOB 12:10 → OBS 12:10 → INTOOBSV 12:51 → OBSVTOIN 12:51
PROVIDERS: ADMIT Student in an Organized Health Care Education/Training Program; ATTEND Internal Medicine
DX: J44.1 Chronic obstructive pulmonary disease with (acute) exacerbation (principal); J96.11 Chronic respiratory failure with hypoxia; D64.9 Anemia, unspecified; R00.0 Tachycardia, unspecified; Z88.2 Allergy status to sulfonamides; Z98.890 Other specified postprocedural states; F17.210 Nicotine dependence, cigarettes, uncomplicated; Z79.82 Long term (current) use of aspirin; Z79.899 Other long term (current) drug therapy; Z71.6 Tobacco abuse counseling; K59.00 Constipation, unspecified
CPT/HCPCS: 36415; 71045; 74018; 80048; 85025; 93005; 93010; 94640; J0456; J0696; J1650; J2919; J7050; J7620; Q0162

== ENCOUNTER 2025-03-04 11:08 | Inpatient (IN) | payer MEDICARE ==
[~2025-03-04 11:08] MED LIST: Iopamidol-370 76% 500 ML MDV (1 ML CHARGE) ONE
[2025-03-04] MEDS ORDERED: LevoFLOXacin 750 mg/D5W 150 ml Premix Bag ONE (11:50)
[2025-03-04] MEDS ORDERED: methylPREDNISolone Sod Succ/PF 125 MG/2 ML VIAL ONE (11:50)
[2025-03-04] MEDS ORDERED: Albuterol 2.5 MG (0.5 mL) NEB ONE (11:51)
[2025-03-04] MEDS ORDERED: Albuterol 2.5 MG (3 mL) NEB ONE (11:51)
[2025-03-04 12:03] LABS: #Basophils 0.07 10x3/uL (0.0-0.2); %Basophils 0.3 % (0.0-1.0); %Eosinophils 0.2 % (0.0-10.0); %Lymphocytes 4.7 % (21.0-51.0); %Monocytes 8.8 % (0.0-10.0); %Neutrophils 85.5 % (42.0-75.0); Hematocrit 32.5 % (36.0-47.0); Mean Corpuscular HGB CONC 30.8 g/dL (32.0-36.0); Mean Corpuscular Hemoglobin 26.4 pg (27.0-31.0); Mean Corpuscular Volume 85.8 fL (78.0-98.0); Mean Platelet Volume 8.1 fL (7.4-10.4); Platelet Count 408 10x3/uL (130-400); RBC Distribution Width 14.7 % (11.5-14.5); Red Blood Cell (RBC) Count 3.79 mill/uL (4.20-5.40)
[2025-03-04 12:22] LABS: ALT (SGPT) Less than 7 U/L (Less than 34); AST (SGOT) 18 U/L (11-34); Albumin 3.5 g/dL (3.1-4.5); Alkaline Phosphatase 68 U/L (40-110); Anion Gap 15 mmol/L (10-20); BUN (Urea Nitrogen) 13 mg/dL (9.8-20.1); Bilirubin, Total 0.3 mg/dL (0.3-1.2); Calc. Creatinine Clearance 0 mL/min (70-130); Carbon Dioxide 28 mmol/L (23-31); Chloride 99 mmol/L (98-107); Estimated GFR 93; Globulin 3.5 g/dL (2.4-3.5); Glucose 104 mg/dL (83-110); Magnesium 1.6 mg/dL (1.6-2.6); Sodium 138 mmol/L (136-145)
[2025-03-04 12:24] LABS: Troponin I Less than 0.010 ng/mL (< 0.028)
[2025-03-04 12:24] LABS: Bacteria/HPF None Seen HPF (None Seen); Bilirubin Negative (Negative); Blood, Urine Negative (Negative); CAUTI Indications for Culture Dysuria,urgency,freq; Clarity Clear (Clear); Glucose, Urine (Dipstick) Normal (Negative); Ketone, Urine Negative (Negative); Leukocyte Negative Leu/uL (Negative); Nitrite Negative (Negative); Protein, Urine (Dipstick) Negative (Neg-Trace); RBC/HPF 0-3 HPF (0-3); Specific Gravity, Urine 1.008 (1.002-1.036); Squamous Epithelial None Seen HPF (0-3); Urobilinogen Normal mg/dL (Less than 2); WBC/HPF None Seen HPF (0-3)
[2025-03-04 12:30] LABS: Actual Bicarbonate (HCO3v) 31.6 mEq/L (22-28); Base Excess 5.8 mEq/L (-2.0 to +3.0); Calcium, Ionized (venous) 1.02 mmol/L (1.16-1.32); Chloride (VBG) 96 mmol/L (98-106); Hematocrit-VBG 34 % (36.0-47.0); Hemoglobin (Hb) 11.7 g/dL (11.7-16.1); Potassium (VBG) 3.95 mmol/L (3.70-5.30); Sodium 137 mmol/L (133-146); pH (venous) 7.405 (7.32-7.43)
[2025-03-04 12:39] LABS: Urine Culture Reflex No No
[2025-03-04] MEDS ORDERED: Acetaminophen 500 MG TAB ONE (13:54)
[2025-03-04] MEDS ORDERED: Ondansetron PF 4 MG/2 ML Vial ONE (13:55)
[2025-03-04] MEDS ORDERED: Guaifenesin DM 100-10/5 ML UDCUP PO PRN (14:42)
[2025-03-04] MEDS ORDERED: Benzonatate 100 MG CAP PO PRN (14:42)
[2025-03-04] MEDS: Vancomycin 1.25 GM / NS 250 ML VIAL-2-BAG IVPB SCH (15:57)
[2025-03-04] MEDS: methylPREDNISolone Sod Succ 40 MG VIAL IVP SCH (16:10)
[2025-03-04 16:33] VITALS: BMI 17.2
[2025-03-04] MEDS: Ipratropium/Albuterol 3 ML NEB NEB SCH (18:58)
[2025-03-04] MEDS: Famotidine 20 MG TAB PO SCH (21:27)
[2025-03-04] MEDS: Escitalopram Oxalate 10 mg Tablet PO SCH (21:27)
[2025-03-04] MEDS: Saccharomyces boulardii 250 MG CAP PO SCH (21:27)
[2025-03-05] MEDS: Acetaminophen 500 MG TAB PO PRN (02:08)
[2025-03-05 07:07] LABS: #Basophils 0.03 10x3/uL (0.0-0.2); #Eosinophils Less than 0.03 10x3/uL (0.0-0.7); %Basophils 0.1 % (0.0-1.0); %Lymphocytes 3.3 % (21.0-51.0); %Monocytes 2.6 % (0.0-10.0); %Neutrophils 93.4 % (42.0-75.0); Hematocrit 29.5 % (36.0-47.0); Hemoglobin 9.1 g/dL (12.0-16.0); Mean Corpuscular HGB CONC 30.8 g/dL (32.0-36.0); Mean Corpuscular Hemoglobin 26.2 pg (27.0-31.0); Mean Platelet Volume 8.6 fL (7.4-10.4); Platelet Count 390 10x3/uL (130-400); RBC Distribution Width 14.7 % (11.5-14.5); Red Blood Cell (RBC) Count 3.47 mill/uL (4.20-5.40)
[2025-03-05 07:31] LABS: ALT (SGPT) Less than 7 U/L (Less than 34); AST (SGOT) 11 U/L (11-34); Albumin 2.9 g/dL (3.1-4.5); Alkaline Phosphatase 51 U/L (40-110); Anion Gap 12 mmol/L (10-20); BUN (Urea Nitrogen) 12 mg/dL (9.8-20.1); Bilirubin, Total 0.2 mg/dL (0.3-1.2); Calc. Creatinine Clearance 76 mL/min (70-130); Calcium 8.3 mg/dL (7.8-10.44); Carbon Dioxide 29 mmol/L (23-31); Chloride 102 mmol/L (98-107); Estimated GFR 95; Globulin 3.1 g/dL (2.4-3.5); Glucose 146 mg/dL (83-110); Potassium 3.9 mmol/L (3.5-5.1); Sodium 139 mmol/L (136-145)
[2025-03-05] MEDS: Metoprolol Succinate XL 25 MG ER.TAB PO SCH (08:44)
[2025-03-05] MEDS: LevoFLOXacin 750 mg/D5W 750 MG in Premix 1 BAG IVPB SCH (08:44)
[2025-03-05] MEDS ORDERED: Simethicone Chewable 80 MG TAB PO PRN (11:11)
[2025-03-05] MEDS ORDERED: Dicyclomine 20 MG TAB PO PRN (11:11)
[2025-03-05] MEDS: Ondansetron ODT 4 MG TAB PO PRN (12:32)
[2025-03-05] MEDS: Mometasone 100 MCG HFA INHALER (RT USE) INH SCH (18:41)
[2025-03-05] MEDS: Enoxaparin 40 MG (0.4 mL) SYRINGE SC SCH (20:38)
[2025-03-06 07:43] LABS: #Basophils Less than 0.03 10x3/uL (0.0-0.2); #Eosinophils Less than 0.03 10x3/uL (0.0-0.7); %Basophils 0.1 % (0.0-1.0); %Lymphocytes 3.9 % (21.0-51.0); %Monocytes 2.8 % (0.0-10.0); %Neutrophils 92.6 % (42.0-75.0); Hematocrit 32.9 % (36.0-47.0); Hemoglobin 10.1 g/dL (12.0-16.0); Mean Corpuscular HGB CONC 30.7 g/dL (32.0-36.0); Mean Corpuscular Hemoglobin 26.6 pg (27.0-31.0); Mean Corpuscular Volume 86.8 fL (78.0-98.0); Mean Platelet Volume 8.3 fL (7.4-10.4); Platelet Count 442 10x3/uL (130-400); RBC Distribution Width 14.8 % (11.5-14.5); Red Blood Cell (RBC) Count 3.79 mill/uL (4.20-5.40)
[2025-03-06] MEDS: Polyethylene Glycol 3350 17 GM Packet PO SCH (10:19)
[2025-03-06 10:36] VITALS: BMI 17.2
[2025-03-06] MEDS: methylPREDNISolone Sod Succ 40 MG VIAL IVP SCH (22:00)
[2025-03-07 05:12] LABS: #Basophils Less than 0.03 10x3/uL (0.0-0.2); #Eosinophils Less than 0.03 10x3/uL (0.0-0.7); %Basophils 0.1 % (0.0-1.0); %Lymphocytes 4.1 % (21.0-51.0); %Neutrophils 92.5 % (42.0-75.0); Hematocrit 29.8 % (36.0-47.0); Hemoglobin 9.2 g/dL (12.0-16.0); Mean Corpuscular HGB CONC 30.9 g/dL (32.0-36.0); Mean Corpuscular Hemoglobin 26.4 pg (27.0-31.0); Mean Corpuscular Volume 85.6 fL (78.0-98.0); Mean Platelet Volume 8.2 fL (7.4-10.4); Platelet Count 416 10x3/uL (130-400); RBC Distribution Width 15.1 % (11.5-14.5); Red Blood Cell (RBC) Count 3.48 mill/uL (4.20-5.40)
[2025-03-07 05:40] LABS: Anion Gap 12 mmol/L (10-20); BUN (Urea Nitrogen) 11 mg/dL (9.8-20.1); Calc. Creatinine Clearance 73 mL/min (70-130); Calcium 8.4 mg/dL (7.8-10.44); Carbon Dioxide 31 mmol/L (23-31); Chloride 101 mmol/L (98-107); Estimated GFR 95; Glucose 152 mg/dL (83-110); Potassium 4.4 mmol/L (3.5-5.1); Sodium 140 mmol/L (136-145)
[2025-03-07] MEDS: LevoFLOXacin 750 MG TAB PO SCH (06:09)
[2025-03-07] MEDS: predniSONE 20 MG TAB PO SCH (08:02)
[2025-03-07] MEDS ORDERED: Fioricet 325/50/40 mg Tablet PO PRN (09:57)
[2025-03-07] MEDS: Fioricet 325/50/40 mg Tablet PO SCH (11:26)
[2025-03-08 03:58] LABS: #Basophils Less than 0.03 10x3/uL (0.0-0.2); %Basophils 0.1 % (0.0-1.0); %Eosinophils 0.3 % (0.0-10.0); %Lymphocytes 13.7 % (21.0-51.0); %Monocytes 11.9 % (0.0-10.0); %Neutrophils 73.3 % (42.0-75.0); Hematocrit 30.1 % (36.0-47.0); Hemoglobin 9.3 g/dL (12.0-16.0); Mean Corpuscular HGB CONC 30.9 g/dL (32.0-36.0); Mean Corpuscular Hemoglobin 25.9 pg (27.0-31.0); Mean Corpuscular Volume 83.8 fL (78.0-98.0); Mean Platelet Volume 8.2 fL (7.4-10.4); Platelet Count 404 10x3/uL (130-400); RBC Distribution Width 14.6 % (11.5-14.5); Red Blood Cell (RBC) Count 3.59 mill/uL (4.20-5.40)
[2025-03-08 04:13] LABS: Anion Gap 13 mmol/L (10-20); BUN (Urea Nitrogen) 16 mg/dL (9.8-20.1); Calc. Creatinine Clearance 69 mL/min (70-130); Calcium 8.4 mg/dL (7.8-10.44); Carbon Dioxide 33 mmol/L (23-31); Chloride 100 mmol/L (98-107); Estimated GFR 93; Glucose 94 mg/dL (83-110); Potassium 3.8 mmol/L (3.5-5.1); Sodium 142 mmol/L (136-145)
[2025-03-08] MEDS: Ipratropium/Albuterol 3 ML NEB NEB SCH (10:37)
[2025-03-08 23:05] LABS: Phosphorus 3.9 mg/dL (2.5-4.5)
[2025-03-09 04:38] LABS: #Basophils Less than 0.03 10x3/uL (0.0-0.2); %Basophils 0.1 % (0.0-1.0); %Eosinophils 0.8 % (0.0-10.0); %Lymphocytes 19.7 % (21.0-51.0); %Monocytes 12.8 % (0.0-10.0); %Neutrophils 65.1 % (42.0-75.0); Hematocrit 32.6 % (36.0-47.0); Hemoglobin 10.2 g/dL (12.0-16.0); Mean Corpuscular HGB CONC 31.3 g/dL (32.0-36.0); Mean Corpuscular Hemoglobin 26.4 pg (27.0-31.0); Mean Corpuscular Volume 84.5 fL (78.0-98.0); Mean Platelet Volume 8.2 fL (7.4-10.4); Platelet Count 472 10x3/uL (130-400); RBC Distribution Width 14.9 % (11.5-14.5); Red Blood Cell (RBC) Count 3.86 mill/uL (4.20-5.40)
[2025-03-09 05:14] LABS: Anion Gap 13 mmol/L (10-20); BUN (Urea Nitrogen) 11 mg/dL (9.8-20.1); Calc. Creatinine Clearance 67 mL/min (70-130); Calcium 8.9 mg/dL (7.8-10.44); Carbon Dioxide 33 mmol/L (23-31); Chloride 99 mmol/L (98-107); Estimated GFR 93; Glucose 91 mg/dL (83-110); Potassium 3.5 mmol/L (3.5-5.1); Sodium 141 mmol/L (136-145)
[2025-03-09] MEDS: predniSONE 20 MG TAB PO SCH (08:25)
[2025-03-09] MEDS: Metoprolol Succinate XL 50 MG ER.TAB PO SCH (08:25)
[2025-03-09] MEDS: Potassium Chloride 20 MEQ TAB PO SCH (10:18)
[2025-03-09] MEDS: Senokot S 8.6-50 MG TAB PO PRN (12:19)
[2025-03-09] MEDS: Ondansetron PF 4 MG/2 ML Vial IVP PRN (12:19)
[2025-03-09] MEDS: Ipratropium/Albuterol 3 ML NEB NEB SCH (13:52)
[2025-03-10 04:39] LABS: #Basophils 0.03 10x3/uL (0.0-0.2); %Basophils 0.3 % (0.0-1.0); %Eosinophils 1.3 % (0.0-10.0); %Lymphocytes 19.4 % (21.0-51.0); %Monocytes 11.2 % (0.0-10.0); %Neutrophils 65.9 % (42.0-75.0); Hematocrit 34.2 % (36.0-47.0); Hemoglobin 10.4 g/dL (12.0-16.0); Mean Corpuscular HGB CONC 30.4 g/dL (32.0-36.0); Mean Corpuscular Hemoglobin 26.1 pg (27.0-31.0); Mean Corpuscular Volume 85.7 fL (78.0-98.0); Mean Platelet Volume 8.2 fL (7.4-10.4); Platelet Count 520 10x3/uL (130-400); RBC Distribution Width 14.8 % (11.5-14.5); Red Blood Cell (RBC) Count 3.99 mill/uL (4.20-5.40)
[2025-03-10 04:46] LABS: Anion Gap 13 mmol/L (10-20); BUN (Urea Nitrogen) 13 mg/dL (9.8-20.1); Calc. Creatinine Clearance 66 mL/min (70-130); Calcium 8.8 mg/dL (7.8-10.44); Carbon Dioxide 36 mmol/L (23-31); Chloride 96 mmol/L (98-107); Estimated GFR 92; Glucose 84 mg/dL (83-110); Sodium 141 mmol/L (136-145)
[2025-03-10 08:53] VITALS: TEMP 98
[2025-03-10 11:37] VITALS: BP 141/67
== END 2025-03-10 13:32 | disposition home or self-care (01) | DRG 871 ==
LOC: ERS 11:08 → 2NO 14:10
PROVIDERS: ADMIT Family Medicine; ATTEND Family Medicine
DX: A41.50 Gram-negative sepsis, unspecified (principal); J18.9 Pneumonia, unspecified organism; J96.21 Acute and chronic respiratory failure with hypoxia; J44.1 Chronic obstructive pulmonary disease with (acute) exacerbation; Z88.2 Allergy status to sulfonamides; Z79.899 Other long term (current) drug therapy; F32.A Depression, unspecified; Z87.891 Personal history of nicotine dependence; M19.90 Unspecified osteoarthritis, unspecified site; Z90.49 Acquired absence of other specified parts of digestive tract; Z98.890 Other specified postprocedural states; I10 Essential (primary) hypertension; Z66 Do not resuscitate
CPT/HCPCS: 36415; 36416; 71045; 71275; 80048; 80053; 81001; 82805; 83605; 83735; 83880; 84100; 84145; 84484; 85025; 87040; 87086; 87428; 93005; 93010; 94640; 94644; 94760; 96365; 96366; 96375; J1650; J1956; J2405; J2919; J3370; J7050; J7512; J7611; J7620; Q0162; Q9967

== ENCOUNTER 2025-08-01 11:45 | Emergency (ER) | payer MEDICARE ==
[2025-08-01 13:05] LABS: #Basophils 0.05 10x3/uL (0.0-0.2); #Eosinophils Less than 0.03 10x3/uL (0.0-0.7); #Monocytes 0.83 10x3/uL (0.11-0.59); #Neutrophils 13.65 10x3/uL (1.40-6.50); %Basophils 0.3 % (0.0-1.0); %Eosinophils 0.1 % (0.0-10.0); %Lymphocytes 4.2 % (21.0-51.0); %Monocytes 5.4 % (0.0-10.0); %Neutrophils 89.4 % (42.0-75.0); Hematocrit 30.3 % (36.0-47.0); Hemoglobin 8.6 g/dL (12.0-16.0); Mean Corpuscular Hemoglobin 22.3 pg (27.0-31.0); Mean Corpuscular Volume 78.7 fL (78.0-98.0); Platelet Count 487 10x3/uL (130-400); Red Blood Cell (RBC) Count 3.85 mill/uL (4.20-5.40); White Blood Cell (WBC) Count 15.27 10x3/uL (4.8-10.8)
[2025-08-01 13:27] LABS: ALT (SGPT) 8 U/L (Less than 34); AST (SGOT) 26 U/L (11-34); Albumin 3.5 g/dL (3.1-4.5); Alkaline Phosphatase 63 U/L (40-110); Anion Gap 14 mmol/L (10-20); BUN (Urea Nitrogen) 10 mg/dL (9.8-20.1); Bilirubin, Total 0.4 mg/dL (0.3-1.2); Calc. Creatinine Clearance 0 mL/min (70-130); Calcium 9.0 mg/dL (7.8-10.44); Carbon Dioxide 33 mmol/L (23-31); Chloride 100 mmol/L (98-107); Globulin 3.4 g/dL (2.4-3.5); Glucose 112 mg/dL (83-110); Potassium 4.3 mmol/L (3.5-5.1); Sodium 143 mmol/L (136-145)
[2025-08-01 13:30] LABS: Bacteria/HPF 2+ HPF (None Seen); CAUTI Indications for Culture Acute Hematuria; Glucose, Urine (Dipstick) Normal (Negative); Leukocyte 25 Leu/uL (Negative); Protein, Urine (Dipstick) Negative (Neg-Trace); RBC/HPF None Seen HPF (0-3); Specific Gravity, Urine 1.005 (1.002-1.036); WBC/HPF 0-3 HPF (0-3)
[2025-08-01 13:40] LABS: Urine Culture Reflex No No
[2025-08-01 13:50] LABS: Anisocytosis SLIGHT = 6-15 cells HPF (0-5); Macrocytosis SLIGHT = 6-15 cells HPF (0-5); Microcytosis SLIGHT = 6-15 cells HPF (0-5); Ovalocytes SLIGHT = 2-5 cells HPF (0-1); Platelet Adequacy Comment Platelets Increased; Polychromasia SLIGHT = 2-3 cells HPF (0-2); Stomatocytes SLIGHT = 2-5 cells HPF (0-1)
== END 2025-08-01 15:00 | disposition home or self-care (01) ==
LOC: ERS 11:45
DX: R44.1 Visual hallucinations (principal); J44.9 Chronic obstructive pulmonary disease, unspecified; F17.210 Nicotine dependence, cigarettes, uncomplicated; Z79.51 Long term (current) use of inhaled steroids
CPT/HCPCS: 36415; 70450; 71045; 80053; 81001; 83880; 84484; 85025; 93005

== ENCOUNTER 2025-11-04 22:48 | Inpatient (IN) | payer MEDICARE ==
[2025-11-04 23:24] LABS: #Basophils 0.05 10x3/uL (0.0-0.2); #Eosinophils 0.18 10x3/uL (0.0-0.7); #Monocytes 1.32 10x3/uL (0.11-0.59); #Neutrophils 5.80 10x3/uL (1.40-6.50); %Basophils 0.6 % (0.0-1.0); %Eosinophils 2.0 % (0.0-10.0); %Lymphocytes 17.3 % (21.0-51.0); %Monocytes 14.8 % (0.0-10.0); %Neutrophils 65.2 % (42.0-75.0); Hematocrit 27.8 % (36.0-47.0); Hemoglobin 7.7 g/dL (12.0-16.0); Mean Corpuscular Hemoglobin 21.4 pg (27.0-31.0); Mean Corpuscular Volume 77.2 fL (78.0-98.0); Platelet Count 431 10x3/uL (130-400); Red Blood Cell (RBC) Count 3.60 mill/uL (4.20-5.40); White Blood Cell (WBC) Count 8.90 10x3/uL (4.8-10.8)
[2025-11-04 23:35] LABS: ALT (SGPT) Less than 7 U/L (Less than 34); AST (SGOT) 19 U/L (11-34); Albumin 3.4 g/dL (3.1-4.5); Alkaline Phosphatase 72 U/L (40-110); Anion Gap 13 mmol/L (10-20); BUN (Urea Nitrogen) 14 mg/dL (9.8-20.1); Bilirubin, Total 0.1 mg/dL (0.3-1.2); Calc. Creatinine Clearance 0 mL/min (70-130); Calcium 9.3 mg/dL (7.8-10.44); Carbon Dioxide 34 mmol/L (23-31); Chloride 97 mmol/L (98-107); Globulin 3.1 g/dL (2.4-3.5); Glucose 123 mg/dL (83-110); Potassium 3.7 mmol/L (3.5-5.1); Sodium 140 mmol/L (136-145)
[2025-11-05] MEDS ORDERED: Magnesium 2 GM/50 ML BAG (IN WATER) ONE (00:11)
[2025-11-05] MEDS ORDERED: Cefepime 2 GM VIAL ONE (03:48)
[2025-11-05] MEDS ORDERED: Melatonin 3 MG TAB PO PRN (04:37)
[2025-11-05] MEDS ORDERED: Senokot S 8.6-50 MG TAB PO PRN (04:37)
[2025-11-05] MEDS ORDERED: Bisacodyl 10 MG SUPP PR PRN (04:37)
[2025-11-05] MEDS ORDERED: Ondansetron PF 4 MG/2 ML Vial IVP PRN (04:37)
[2025-11-05] MEDS ORDERED: Guaifenesin DM 100-10/5 ML UDCUP PO PRN (04:37)
[2025-11-05] MEDS ORDERED: Electrolyte Replacement Protocol 1 EACH FS SCH (04:45)
[2025-11-05] MEDS ORDERED: Magnesium Sulfate In Water 4 GM in Premix 1 BAG IVPB PRN (05:00)
[2025-11-05] MEDS ORDERED: Potassium Chloride 20 MEQ in Premix 1 BAG IVPB PRN (05:00)
[2025-11-05] MEDS ORDERED: PHOS-NAK 1 PKT PACK PO PRN (05:00)
[2025-11-05 06:24] VITALS: BMI 20.2
[2025-11-05] MEDS ORDERED: FLU (Fluad Triv) 25-26 (65UP)PF 45 MCG/0.5 ML Syringe IM ONE (08:45)
[2025-11-05] MEDS ORDERED: PNEUMOC 20-VAL CONJ-DIP CRM/PF 0.5 ML SYRINGE IM ONE (08:45)
[2025-11-05] MEDS: Aspirin 81 mg Enteric Coated Tablet PO SCH (10:16)
[2025-11-05] MEDS: Enoxaparin 40 MG (0.4 mL) SYRINGE SC SCH (10:17)
[2025-11-05] MEDS: Azithromycin 250 MG TAB PO SCH (10:17)
[2025-11-05] MEDS: Metoprolol Succinate XL 50 MG ER.TAB PO SCH (10:24)
[2025-11-05] MEDS: Famotidine 20 MG TAB PO SCH (10:27)
[2025-11-05] MEDS: Mometasone 200 MCG/Formoterol 5 MCG 120 PUFF INHALER INH SCH (10:43)
[2025-11-05 12:42] LABS: Legionella Urinary Ag Negative (Negative); Strep pneumo Urine Ag NEGATIVE (NEGATIVE)
[2025-11-05] MEDS: Acetaminophen 325 MG TAB PO PRN (16:44)
[2025-11-05] MEDS: Calcium Carbonate 500 MG ChewTAB PO PRN (16:56)
[2025-11-05] MEDS: risperiDONE 1 MG TAB PO SCH (20:55)
[2025-11-06] MEDS: cefTRIAXone\\ROCEPHIN 1 GM in Sodium Chloride 0.9% 100 ML IVPB SCH (03:46)
[2025-11-06 04:12] LABS: #Basophils Less than 0.03 10x3/uL (0.0-0.2); #Eosinophils Less than 0.03 10x3/uL (0.0-0.7); #Monocytes 1.33 10x3/uL (0.11-0.59); #Neutrophils 6.77 10x3/uL (1.40-6.50); %Basophils 0.1 % (0.0-1.0); %Eosinophils 0.1 % (0.0-10.0); %Lymphocytes 11.3 % (21.0-51.0); %Monocytes 14.5 % (0.0-10.0); %Neutrophils 73.7 % (42.0-75.0); Hematocrit 26.9 % (36.0-47.0); Hemoglobin 7.5 g/dL (12.0-16.0); Mean Corpuscular Hemoglobin 21.2 pg (27.0-31.0); Mean Corpuscular Volume 76.0 fL (78.0-98.0); Platelet Count 455 10x3/uL (130-400); Red Blood Cell (RBC) Count 3.54 mill/uL (4.20-5.40); White Blood Cell (WBC) Count 9.19 10x3/uL (4.8-10.8)
[2025-11-06 04:21] LABS: ALT (SGPT) Less than 7 U/L (Less than 34); AST (SGOT) 26 U/L (11-34); Albumin 3.2 g/dL (3.1-4.5); Alkaline Phosphatase 58 U/L (40-110); Anion Gap 15 mmol/L (10-20); BUN (Urea Nitrogen) 17 mg/dL (9.8-20.1); Bilirubin, Total 0.2 mg/dL (0.3-1.2); Calc. Creatinine Clearance 82 mL/min (70-130); Calcium 9.0 mg/dL (7.8-10.44); Carbon Dioxide 33 mmol/L (23-31); Chloride 98 mmol/L (98-107); Globulin 3.0 g/dL (2.4-3.5); Glucose 100 mg/dL (83-110); Magnesium 2.1 mg/dL (1.6-2.6); Potassium 4.1 mmol/L (3.5-5.1); Sodium 142 mmol/L (136-145)
[2025-11-06] MEDS: Dicyclomine 20 MG TAB PO SCH (09:36)
[2025-11-06] MEDS ORDERED: Albuterol 2.5 MG (3 mL) NEB NEB PRN (10:21)
[2025-11-07 04:53] LABS: Anion Gap 12 mmol/L (10-20); BUN (Urea Nitrogen) 20 mg/dL (9.8-20.1); Calc. Creatinine Clearance 72 mL/min (70-130); Calcium 8.6 mg/dL (7.8-10.44); Carbon Dioxide 36 mmol/L (23-31); Chloride 97 mmol/L (98-107); Glucose 96 mg/dL (83-110); Potassium 4.1 mmol/L (3.5-5.1); Sodium 141 mmol/L (136-145)
[2025-11-07] MEDS: predniSONE 20 MG TAB PO SCH (09:20)
[2025-11-07 19:12] LABS: Hematocrit 27.1 % (36.0-47.0); Hemoglobin 7.5 g/dL (12.0-16.0)
[2025-11-07] MEDS: risperiDONE 1 MG TAB PO SCH (20:12)
[2025-11-08 04:55] LABS: Anion Gap 10 mmol/L (10-20); BUN (Urea Nitrogen) 15 mg/dL (9.8-20.1); Calc. Creatinine Clearance 76 mL/min (70-130); Calcium 8.8 mg/dL (7.8-10.44); Carbon Dioxide 39 mmol/L (23-31); Chloride 97 mmol/L (98-107); Glucose 84 mg/dL (83-110); Potassium 4.1 mmol/L (3.5-5.1); Sodium 142 mmol/L (136-145)
[2025-11-08 07:30] VITALS: BP 165/72; TEMP 97.8
[2025-11-08] MEDS: risperiDONE 1 MG TAB PO SCH (08:57)
[2025-11-08] MEDS: Ferrous Sulfate 325 MG TAB PO SCH (08:58)
[2025-11-08] MEDS ORDERED: Ferrous Sulfate 325 MG TAB PO SCH (17:00)
== END 2025-11-08 11:02 | disposition home or self-care (01) | DRG 193 ==
LOC: ERS 22:48 → 2NO 11-05 04:04 → OBSVTOIN 11-05 13:14
PROVIDERS: ADMIT Internal Medicine; ATTEND Hospitalist
PROC: 3E02340 Introduction of Influenza Vaccine into Muscle, Percutaneous Approach (ICD-10-PCS; principal; 2025-11-05)
PROC: 3E0234Z Introduction of Serum, Toxoid and Vaccine into Muscle, Percutaneous Approach (ICD-10-PCS; 2025-11-05)
DX: J18.9 Pneumonia, unspecified organism (principal); J96.21 Acute and chronic respiratory failure with hypoxia; J44.0 Chronic obstructive pulmonary disease with (acute) lower respiratory infection; J44.1 Chronic obstructive pulmonary disease with (acute) exacerbation; J44.9 Chronic obstructive pulmonary disease, unspecified; F17.210 Nicotine dependence, cigarettes, uncomplicated; F41.9 Anxiety disorder, unspecified; R44.1 Visual hallucinations; F03.90 Unspecified dementia, unspecified severity, without behavioral disturbance, psychotic disturbance, mood disturbance, and anxiety; Z88.1 Allergy status to other antibiotic agents; Z88.2 Allergy status to sulfonamides; Z79.899 Other long term (current) drug therapy; Z79.2 Long term (current) use of antibiotics; Z79.82 Long term (current) use of aspirin; Z23 Encounter for immunization
CPT/HCPCS: 36415; 71045; 80048; 80053; 82274; 83735; 84100; 84484; 85014; 85018; 85025; 87040; 87070; 87077; 87186; 87205; 87428; 87449; 87899; 93005; 94640; 96372; 96376; G0378; J0692; J0696; J1650; J2919; J3475; J7512